=== PATIENT | male | born 1970 | race Caucasian/White ===

== ENCOUNTER → 2021-12-29 15:27 | Outpatient (CLI) | payer BC, SELFPAY ==
--- NOTE | ~2021-12-29 | XR_ITS ---
[id number]_CR DATE: 12/29/2021 15:56 INDICATION: Worsening neck pain TECHNIQUE: AP, open-mouth, lateral views COMPARISON: None FINDINGS: There is reversal of cervical curvature. C1 and C2 are normally aligned and the odontoid process is intact. There is 2.5 mm anterolisthesis at C3-4. There is mild to moderate loss of interspace height and anterior spurring at C5-6. No fracture or dislocation or locked facet or prevertebral soft tissue swelling. 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 Reviewed, dictated and finalized at [facility].
== END ==
DX: M47.812 Spondylosis without myelopathy or radiculopathy, cervical region (principal)
CPT/HCPCS: 72040